=== PATIENT | male | born 1945 | race Caucasian/White ===

== ENCOUNTER 2016-11-11 10:15 | Emergency (ER) | payer OTHER ==
[2016-11-11 10:52] VITALS: BP 137/80; PULSE 62; RESP 16; TEMP 98.2; O2SAT 98
--- NOTE | 2016-11-11 11:40 | UCPHY ---
H & P Patient Type: Established HPI/ROS: This patient presents with a chief complaint of a foreign body in his right 3rd digit tip which occurred while waxing skis 2 weeks ago. There is some tenderness and swelling. Smoking Status: Never smoked Physical Exam: This is a well-developed well-nourished male who is in no acute distress . He is alert and lucid. Examination of the right 3rd digit reveals a pale area with a puncture wound in the extreme distal tip of the digit to the radial side of midline. The area is slightly tender but does not appear to be infected. This is consistent with a foreign body. Constitutional: Initial Vital Signs Temperature (C) 36.8 C 11/11/16 10:48 Heart Rate 62 11/11/16 10:48 Respiratory Rate 16 11/11/16 10:48 Blood Pressure 137/80 H 11/11/16 10:48 O2 Sat (%) 98 11/11/16 10:48 O2 Delivery Mode Room Air Allergies/Adverse Reactions: No Known Allergies Allergy (Unverified 11/11/16 10:52) Home Medications: Medication Instructions Recorded [place]-3 Fatty Acids [Fish Oil 1000 1,000 mg PO DAILY 04/11/14 mg (*)] Atorvastatin Calcium [Lipitor 40 40 mg PO DAILY 05/25/16 mg (*)] Cholecalciferol Vit D3 [Vitamin D3 4,000 units PO DAILY 05/25/16 2000 units tab (OTC)] Herbals/Supplements -Info Only 1 ea PO DAILY 05/25/16 Aspirin EC [Aspirin EC 325 mg (*)] 325 mg PO DAILY #0 tab 05/26/16 Prasugrel HCl [Effient 10mg (*)] 10 mg PO DAILY #0 tab 05/26/16 Medical Decision Making Procedures: A digital block was applied to the radial side of her digit using 0.5% Marcaine without epinephrine. A 0.5 cm incision was made overlying the area in question and a small amount of purulent material was drained. The wound was probed and explored no foreign body could be identified. The patient is aware that the foreign body may remain. Departure - Departure Disposition: Home, Routine, Self-Care Clinical Impression: Foreign body finger Condition: Good Instructions: Soft Tissue Foreign Body (ED) Additional Instructions: If you continue to experience the sensation of a foreign body you should follow- up with a hand surgeon whose name is given to you in these pages. If you develop any suggestion of further infection you should return immediately. Things to look for would be increasing pain, redness or swelling. Soak your finger in warm to hot water several times daily. If you notice spreading redness, swelling, increasing pain and tenderness or kiara pus you should return immediately since these findings frequently indicate infection. It usually takes 3 days from the time of injury for an infection to begin. Adult Pain & Fever Control: We recommend Acetaminophen (Tylenol) and Ibuprofen (Motrin, Advil) for pain and fever control. When fever is high or pain severe, both drugs can be used at the same time, but at different intervals. Please note the time differences. Your dose is: Acetaminophen [650]mg every 4 to 6 hours ibuprofen [600]mg every [6] hours with food OR naproxen Sodium (Aleve) [440]mg every 12 hours. Note: do not take Acetaminophen with Hydrocodone (Vicodin, Lortab) or Oxycodone (Percocet). These medications also contain Acetaminophen. No more than 3000 mg of Acetaminophen should be taken in 24 hours (for an adult) . The maximal dose of ibuprofen that it is safe in a 24-hour period is 2400 mg. You may take 400 mg every 4 hours, 600 mg every 6 hours or 800 mg every 8 hours safely. Referrals: Noé Mcclure DO [Primary Care Provider] - As per Instructions Yady Osman MD [Medical Doctor] - As per Instructions - PQRS PQRS Measurement: Not applicable
== END 2016-11-11 12:30 | disposition home or self-care (01) ==
LOC: CED 10:15
PROC: 0H9FX0Z Drainage of Right Hand Skin with Drainage Device, External Approach (ICD-10-PCS; principal; 2016-11-11)
DX: S60.452A Superficial foreign body of right middle finger, initial encounter (principal); M79.89 Other specified soft tissue disorders
CPT/HCPCS: 10140; G0463; 99213-PO

== ENCOUNTER 2017-04-14 15:57 | Emergency (ER) | payer OTHER ==
--- NOTE | 2017-04-14 17:54 | EDPHY ---
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 He is on Effient because he had recent coronary stenting approximately 1 year ago. Today he was outside playing golf and then got home and his noticed his eye was very red. He felt like he got something in it perhaps and was a little bit irritated but no change in vision and no actual eye pain. REVIEW OF SYSTEMS: No other bruising or bleeding. No decrease in visual acuity. No floaters or flashing lights. No direct eye trauma. PAST MEDICAL HISTORY: Coronary stenting as above. Redness surgery as above. Social history: General Appearance: Alert, no distress. Visual acuity: noted from nursing notes. 20/40 bilaterally without glasses. Lids and Lashes: No edema, no stye, no erythema. Conjunctivae: Not injected, no exudate. Sclera: Subconjunctival hemorrhage medially and laterally on the left. Pupils: Equal and round, normally reactive. Corneas: Left examined with fluoroscein, lateral corneal uptake seen with slitlamp. Negative Jordyn test with fluoroscein. No foreign body on surface of cornea. Anterior chamber: normal, no hyphema or hypopyon. External: No proptosis, no periorbital swelling or redness or tenderness. Emergency Department course/MDM: Patient has a 2 mm left lateral corneal abrasion is subconjunctival hemorrhage but no evidence of corneal ulcer or decreased visual acuity or hyphema. Tobramycin eyedrops, referred back to his blanket weaver for follow-up. Warned that his subconjunctival hemorrhage may take a month or longer to completely resolved. 2202: Discussed with Irma in detail, recommends and is in agreement with planned treatment and followup. Smoking Status: Never smoked Constitutional: Initial Vital Signs Temperature (C) 36.0 C 04/14/17 16:24 Heart Rate 79 04/14/17 16:24 Respiratory Rate 14 04/14/17 16:24 Blood Pressure 114/67 04/14/17 16:24 O2 Sat (%) 94 04/14/17 16:24 O2 Delivery Mode Room Air Allergies/Adverse Reactions: No Known Allergies Allergy (Unverified 11/11/16 10:52) Home Medications: Medication Instructions Recorded [place]-3 Fatty Acids [Fish Oil 1000 1,000 mg PO DAILY 04/11/14 mg (*)] Atorvastatin Calcium [Lipitor 40 40 mg PO DAILY 05/25/16 mg (*)] Cholecalciferol Vit D3 [Vitamin D3 4,000 units PO DAILY 05/25/16 2000 units tab (OTC)] Herbals/Supplements -Info Only 1 ea PO DAILY 05/25/16 Aspirin EC [Aspirin EC 325 mg (*)] 325 mg PO DAILY #0 tab 05/26/16 Prasugrel HCl [Effient 10mg (*)] 10 mg PO DAILY #0 tab 05/26/16 Tobramycin 0.3% [Tobrex 0.3% opht 1 drops .ROUTE Q4 5 Days 04/14/17 drops (*)] MDM/Departure - Depart Disposition: Home, Routine, Self-Care Clinical Impression: Subconjunctival hemorrhage of left eye Corneal abrasion Qualifiers: Encounter type: initial encounter Laterality: left Qualified Code(s): S05.02XA - Injury of conjunctiva and corneal abrasion without foreign body, left eye, initial encounter Condition: Good Instructions: Subconjunctival Hemorrhage (ED), Corneal Abrasion (ED) Prescriptions: Tobramycin 0.3% [Tobrex 0.3% opht drops (*)] 1 drops .ROUTE Q4 5 Days Referrals: Noé Mcclure DO [Primary Care Provider] - As per Instructions Ashley Solis MD [Non Staff Provider ()] - 2-3 days, call for appt.
[2017-04-14 18:11] VITALS: BP 114/85; PULSE 69; RESP 18; TEMP 98.4; O2SAT 98
== END 2017-04-14 18:10 | disposition home or self-care (01) ==
DX: S05.02XA Injury of conjunctiva and corneal abrasion without foreign body, left eye, initial encounter (principal); H11.32 Conjunctival hemorrhage, left eye; Z79.82 Long term (current) use of aspirin; Z95.5 Presence of coronary angioplasty implant and graft; X58.XXXA Exposure to other specified factors, initial encounter; Y99.8 Other external cause status; Y93.53 Activity, golf

== ENCOUNTER 2018-01-30 19:55 | Observation (INO) | payer OTHER ==
--- NOTE | 2018-01-30 19:57 | EDPHY ---
H & P Time Seen by Provider: 01/30/18 19:57 HPI/ROS: HPI CHIEF COMPLAINT: Palpitations, Lightheadedness, strong pulse. HISTORY OF PRESENT ILLNESS: Patient very pleasant 72-year-old male, presents emergency room after states tonight he was sitting on the couch and noticed that his heart pulse was being very strong and felt as if he was skipping a beat. Does report today he felt rather lightheaded this he denies having any chest pressure or chest pain. However patient states today he played 18 holes of golf today he bite to went from the [employer], additionally he mowed the [employer] yard. It Was very hot out today but patient reports that he kept up on his fluids. Approximately an hour ago he was sitting down watching TV on the couch and noticed his pulse being very strongly and a skipped beat. Became concerned about this and decided come the emergency room. Additionally patient reports that he went for a 20 mi bike ride last night between 5:00 p.m. and 8 p.m.. And then he played golf this morning Patient's general doc is Dr. Km Hunter. Past Medical History: Coronary artery disease with 2 stents. Hyperlipidemia Past Surgical History: Coronary artery disease with multiple stents, additionally surgery for a ruptured diaphragm. Social History: Denies daily use of drugs alcohol tobacco. Family History: Noncontributory ROS REVIEW OF SYSTEMS: A comprehensive 10 point review of systems is otherwise negative aside from elements mentioned in the history of present illness. Exam Constitutional appears well nontoxic no acute distress, slightly anxious, triage nursing summary reviewed, vital signs reviewed, awake/alert. Eyes normal conjunctivae and sclera, EOMI, PERRLA. HENT normal inspection, atraumatic, moist mucus membranes, no epistaxis, neck supple/ no meningismus, no raccoon eyes. Respiratory clear to auscultation bilaterally, normal breath sounds, no respiratory distress, no wheezing. Cardiovascular rate normal, regular rhythm, no murmur, no edema, distal pulses normal. Gastrointestinal soft, non-tender, no rebound, no guarding, normal bowel sounds, no distension, no pulsatile mass. Genitourinary no CVA tenderness. Musculoskeletal no midline vertebral tenderness, full range of motion, no calf swelling, no tenderness of extremities, no meningismus, good pulses, neurovascularly intact. Skin pink, warm, & dry, no rash, skin atraumatic. Neurologic awake, alert and oriented x 3, AAOx3, moves all 4 extremities equally, motor intact, sensory intact, CN II-XII intact, normal cerebellar, normal vision, normal speech. Psychiatric normal mood/affect. Heme/Lymph/Immune no lymphadenopathy. 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 Re-evaluation: EKG interpretation by me on record in [employer] system. Impression time of EKG 2001: This is sinus rhythm rate of 83 he has a first-degree AV block with AL interval 256 there is a PVC present. I do not appreciate a significant ST elevation or significant ST depression there is some T-wave abnormalities lead V4 V5 V6. EKG interpretation by me on record in [employer] system. Impression time of EKG 2047, sinus rhythm rate of 72 multiple PVCs present. First-degree AV block 256. Left anterior fascicular block. No ST elevation. T-wave abnormality view. 2109: Spoke with Dr. Alon Flores with Cardiology, reviewed the case with him. He does feel comfortable patient be admitted overnight for serial enzymes and IV hydration. I discussed the results with the patient about his lab work and workup. He is comfortable being admitted overnight for IV hydration serial enzymes. I will speak with the hospitalist service for admission overnight. Observation. 2130: Spoke with the hospitalist service Dr. Kidd. Agrees to admit. Source: Patient, Family - Personal History Tetanus Vaccine Date: < 10 YEARS - Medical/Surgical History Hx Asthma: No Hx Chronic Respiratory Disease: No Hx Diabetes: No Hx Cardiac Disease: Yes Hx Renal Disease: No Hx Cirrhosis: No Hx Alcoholism: No Hx HIV/AIDS: No Hx Splenectomy or Spleen Trauma: No Other PMH: PTX AND MAJOR SURGERY PLAQUE per calcium score. High cholesterol, STENTS X 2 - Social History Smoking Status: Never smoked Constitutional: Initial Vital Signs Temperature (C) 36.8 C 01/30/18 20:40 Heart Rate 82 06/06/18 20:40 Respiratory Rate 20 01/30/18 20:40 Blood Pressure 148/69 H 01/30/18 20:40 O2 Sat (%) 91 L 01/30/18 20:40 O2 Delivery Mode Room Air Allergies/Adverse Reactions: No Known Allergies Allergy (Unverified 01/30/18 20:39) Home Medications: Medication Instructions Recorded [place]-3 Fatty Acids [Fish Oil 1000 1,000 mg PO DAILY 04/11/14 mg (*)] Atorvastatin Calcium [Lipitor 40 40 mg PO DAILY 05/25/16 mg (*)] Cholecalciferol Vit D3 [Vitamin D3 4,000 units PO DAILY 05/25/16 2000 units tab (OTC)] Herbals/Supplements -Info Only 1 ea PO DAILY 05/25/16 Aspirin EC [Aspirin EC 325 mg (*)] 325 mg PO DAILY #0 tab 05/26/16 Prasugrel HCl [Effient 10mg (*)] 10 mg PO DAILY #0 tab 05/26/16 Tobramycin 0.3% [Tobrex 0.3% opht 1 drops .ROUTE Q4 5 Days opht.btl 04/14/17 drops (*)] Medical Decision Making - Diagnostics Imaging Results: Imaging Impressions Chest X-Ray 01/30/18 19:58 Impression: Negative for acute abnormality. - Data Points Laboratory Results: Laboratory Results 01/30/18 20:09 01/30/18 01/30/18 01/30/18 20:32 20:30 20:29 WBC RBC Hgb POC Hgb 14.6 gm/dL gm/dL (13.7-17.5) Hct POC Hct 43 % % (40-51) MCV MCH MCHC RDW Plt Count MPV Neut % (Auto) Lymph % (Auto) [place] % (Auto) Eos % (Auto) Baso % (Auto) Nucleat RBC Rel Count Absolute Neuts (auto) Absolute Lymphs (auto) Absolute Monos (auto) Absolute Eos (auto) Absolute Basos (auto) Absolute Nucleated RBC Immature Gran % Immature Gran # POC Blood Source VENOUS Patient Temperature 36.6 DEGREES DEGREES POC VBG pH 7.49 H (7.31-7.42) POC VBG pCO2 33 mmHg L mmHg (40-44) POC VBG pO2 49 mmHg H mmHg (35-40) POC VBG HCO3 26 mEq/L mEq/L (22-26) POC VBG Total CO2 26 mEq/L mEq/L (21-27) POC VBG Base Excess 2.0 mEq/L mEq/L (-2.5-2.5) POC Mix VBG O2 Sat 88 % H % (65-75) POC Sodium 142 mEq/L mEq/L (135-145) POC Potassium 4.1 mEq/L mEq/L (3.3-5.0) POC Chloride 107 mEq/L mEq/L (97-110) POC BUN 16 mg/dL mg/dL (7-23) POC Creatinine 0.9 mg/dL mg/dL (0.7-1.3) POC Glucose 131 mg/dL H mg/dL (70-100) POC Lactic Acid Zbigniew 1.3 mmol/L mmol/L (0.7-2.1) Magnesium Creatine Kinase CK-MB (CK-2) Fraction POC Troponin I 0.00 ng/mL ng/mL (0.00-0.08) TSH 01/30/18 01/30/18 20:09 20:09 WBC 5.35 10^3/uL 10^3/uL (3.80-9.50) RBC 5.08 10^6/uL 10^6/uL (4.40-6.38) Hgb 15.4 g/dL g/dL (13.7-17.5) POC Hgb Hct 45.3 % % (40.0-51.0) POC Hct MCV 89.2 fL fL (81.5-99.8) MCH 30.3 pg pg (27.9-34.1) MCHC 34.0 g/dL g/dL (32.4-36.7) RDW 13.5 % % (11.5-15.2) Plt Count 166 10^3/uL 10^3/uL (150-400) MPV 9.5 fL fL (8.7-11.7) Neut % (Auto) 59.6 % % (39.3-74.2) Lymph % (Auto) 29.0 % % (15.0-45.0) [place] % (Auto) 8.0 % % (4.5-13.0) Eos % (Auto) 2.4 % % (0.6-7.6) Baso % (Auto) 0.6 % % (0.3-1.7) Nucleat RBC Rel Count 0.0 % % (0.0-0.2) Absolute Neuts (auto) 3.19 10^3/uL 10^3/uL (1.70-6.50) Absolute Lymphs (auto) 1.55 10^3/uL 10^3/uL (1.00-3.00) Absolute Monos (auto) 0.43 10^3/uL 10^3/uL (0.30-0.80) Absolute Eos (auto) 0.13 10^3/uL 10^3/uL (0.03-0.40) Absolute Basos (auto) 0.03 10^3/uL 10^3/uL (0.02-0.10) Absolute Nucleated RBC 0.00 10^3/uL 10^3/uL (0-0.01) Immature Gran % 0.4 % % (0.0-1.1) Immature Gran # 0.02 10^3/uL 10^3/uL (0.00-0.10) POC Blood Source Patient Temperature POC VBG pH POC VBG pCO2 POC VBG pO2 POC VBG HCO3 POC VBG Total CO2 POC VBG Base Excess POC Mix VBG O2 Sat POC Sodium POC Potassium POC Chloride POC BUN POC Creatinine POC Glucose POC Lactic Acid Zbigniew Magnesium 2.0 mg/dL mg/dL (1.6-2.3) Creatine Kinase 130 IU/L IU/L (0-224) CK-MB (CK-2) Fraction 2.62 ng/mL ng/mL (0.00-4.55) POC Troponin I TSH 1.800 uIU/mL uIU/mL (0.465-4.680) Medications Given: Discontinued Medications Sodium Chloride (Ns) 1,000 mls @ 0 mls/hr IV ONCE ONE PRN Reason: Wide Open Stop: 01/30/18 20:07 Last Admin: 01/30/18 20:32 Dose: 1,000 mls Point of Care Test Results: Chemistry 01/30/18 01/30/18 20:32 20:30 POC Sodium 142 mEq/L mEq/L (135-145) POC Potassium 4.1 mEq/L mEq/L (3.3-5.0) POC Chloride 107 mEq/L mEq/L (97-110) POC BUN 16 mg/dL mg/dL (7-23) POC Creatinine 0.9 mg/dL mg/dL (0.7-1.3) POC Glucose 131 mg/dL H mg/dL (70-100) POC Troponin I 0.00 ng/mL ng/mL (0.00-0.08) Blood Gas/Lactic Acid-Arterial 01/30/18 20:29 POC Blood Source VENOUS Blood Gas/Lactic Acid-Venous 01/30/18 20:29 POC VBG pH 7.49 H (7.31-7.42) POC VBG pCO2 33 mmHg L mmHg (40-44) POC VBG pO2 49 mmHg H mmHg (35-40) POC VBG HCO3 26 mEq/L mEq/L (22-26) POC VBG Total CO2 26 mEq/L mEq/L (21-27) POC VBG Base Excess 2.0 mEq/L mEq/L (-2.5-2.5) POC Mix VBG O2 Sat 88 % H % (65-75) POC Lactic Acid Zbigniew 1.3 mmol/L mmol/L (0.7-2.1) ISTAT H&H 01/30/18 20:30 POC Hgb 14.6 gm/dL gm/dL (13.7-17.5) POC Hct 43 % % (40-51) Departure - Departure Disposition: [facility] Inpatient Acute Clinical Impression: Lightheaded, Dehydration, Heart palpitations, PVCs (premature ventricular contractions) Condition: Fair Referrals: Noé Mcclure DO [Primary Care Provider] - As per Instructions
--- NOTE | 2018-01-30 20:04 | CPEKG ---
Heart Rate: 83 RR Interval: 723 P-R Interval: 256 QRSD Interval: 106 QT Interval: 396 QTC Interval: 466 P [place]: 42 QRS [place]: -52 T Wave [place]: 27 EKG Severity - ABNORMAL ECG - EKG Impression: SINUS RHYTHM EKG Impression: VENTRICULAR TRIGEMINY EKG Impression: FIRST DEGREE AV BLOCK EKG Impression: LEFT ANTERIOR FASCICULAR BLOCK EKG Impression: BORDERLINE T WAVE ABNORMALITIES EKG Impression: COMPARED WITH 05/26/2016, VENTRICULAR ECTOPY NOW SEEN Electronically Signed By: Christina Meneses 31-Jan-2018 18:10:43
[2018-01-30] MEDS ORDERED: NS 1,000 ML IV ONE ×2 (20:06→21:27)
[2018-01-30 20:53] LABS: PLATELET COUNT 166 10^3/uL (150-400)
[2018-01-30 20:59] LABS: CREATINE KINASE 130 IU/L (0-224)
[2018-01-30] MEDS ORDERED: ACETAMINOPHEN 325 MG TAB PO PRN (22:14)
[2018-01-30] MEDS ORDERED: ONDANSETRON 4 MG/2 ML VIAL IVP PRN (22:14)
[2018-01-30] MEDS ORDERED: ONDANSETRON DISINTEGRATING 4 MG TAB PO PRN (22:14)
--- NOTE | 2018-01-30 23:42 | PDGENHP ---
History and Physical - Chief Complaint Skipped beats - History of Present Illness 72 yo M w/ hx of CAD s/p NOEMÍ x2 in 2016 presented to ED with complaints of skipped beats when he felt his radial pulse. Patient explains that he has been very active the last few days. He undertook 3 15+ mile bike rides and also mowed the lawn of his [employer]into. He felt a little lightheaded this morning but felt well the rest of the day. Then, this evening, he checked in radial pulse and thought that there were occasional skipped beats. He was asymptomatic through this and denies chest pain. [place] [facility] [place] were noted on monitor and ECG. Dr. Berman spoke with Dr. Flores who recommended observation on telemetry overnight and monitoring of cardiac enzymes. At the time of my evaluation patient is asymptomatic. History Information - Allergies/Home Medication List Allergies/Adverse Reactions: No Known Allergies Allergy (Unverified 01/30/18 20:39) Home Medications: [place]-3 Fatty Acids [Fish Oil 1000 mg (*)] 1,000 mg PO DAILY 04/11/14 [Last Taken 05/24/16 06:00] Atorvastatin Calcium [Lipitor 40 mg (*)] 40 mg PO DAILY 05/25/16 [Last Taken 06:00] Cholecalciferol Vit D3 [Vitamin D3 2000 units tab (OTC)] 4,000 units PO DAILY [Last Taken 05/24/16 06:00] Herbals/Supplements -Info Only 1 ea PO DAILY 05/25/16 [Last Taken 05/24/16 06:00 ] I have personally reviewed and updated: family history, medical history - Past Medical History coronary artery disease - Surgical History Reports: hernia repair, coronary stent - Family History Positive for: cancer - Social History Smoking Status: Never smoked Review of Systems Review of Systems: ROS: 10pt was reviewed & negative except for what was stated in HPI & below Physical Exam Physical Exam: Temp Pulse Resp BP Pulse Ox 36.6 C 64 18 121/73 H 92 01/30/18 23:00 01/30/18 23:00 01/30/18 23:00 01/30/18 23:00 01/30/18 23:00 Constitutional: no apparent distress, not in pain Eyes: PERRL, EOMI Ears, Nose, Mouth, Throat: moist mucous membranes, no oral mucosal ulcers Cardiovascular: regular rate and rhythym, no murmur, rub, or gallop Respiratory: no respiratory distress, clear to auscultation Gastrointestinal: normoactive bowel sounds, soft, non-tender abdomen Skin: warm, normal color Musculoskeletal: full muscle strength, no muscle tenderness Neurologic: AAOx3, CN II-XII Intact Psychiatric: interacting appropriately, not anxious Lab Data & Imaging Review 01/30/18 20:09 WBC 5.35 10^3/uL (3.80-9.50) 01/30/18 20:09 RBC 5.08 10^6/uL (4.40-6.38) 01/30/18 20:09 Hgb 15.4 g/dL (13.7-17.5) 01/30/18 20: POC Hgb 14.6 gm/dL (13.7-17.5) 01/30/18 20:30 Hct 45.3 % (40.0-51.0) 01/30/18 20: POC Hct 43 % (40-51) 01/30/18 20:30 MCV 89.2 fL (81.5-99.8) 01/30/18 20: MCH 30.3 pg (27.9-34.1) 01/30/18 20: MCHC 34.0 g/dL (32.4-36.7) 01/30/18 20:09 RDW 13.5 % (11.5-15.2) 01/30/18 20:09 Plt Count 166 10^3/uL (150-400) 01/30/18 20:09 MPV 9.5 fL (8.7-11.7) 01/30/18 20:09 Neut % (Auto) 59.6 % (39.3-74.2) 01/30/18 20:09 Lymph % (Auto) 29.0 % (15.0-45.0) 01/30/18 20:09 [place] % (Auto) 8.0 % (4.5-13.0) 01/30/18 20:09 Eos % (Auto) 2.4 % (0.6-7.6) 01/30/18 20:09 Baso % (Auto) 0.6 % (0.3-1.7) 01/30/18 20:09 Nucleat RBC Rel Count 0.0 % (0.0-0.2) 01/30/18 20:09 Absolute Neuts (auto) 3.19 10^3/uL (1.70-6.50) 01/30/18 20:09 Absolute Lymphs (auto) 1.55 10^3/uL (1.00-3.00) 01/30/18 20:09 Absolute Monos (auto) 0.43 10^3/uL (0.30-0.80) 01/30/18 20:09 Absolute Eos (auto) 0.13 10^3/uL (0.03-0.40) 01/30/18 20:09 Absolute Basos (auto) 0.03 10^3/uL (0.02-0.10) 01/30/18 20:09 Absolute Nucleated RBC 0.00 10^3/uL (0-0.01) 01/30/18 20:09 Immature Gran % 0.4 % (0.0-1.1) 01/30/18 20:09 Immature Gran # 0.02 10^3/uL (0.00-0.10) 01/30/18 20:09 POC Blood Source VENOUS 01/30/18 20:29 Patient Temperature 36.6 DEGREES 01/30/18 20:29 POC VBG pH 7.49 (7.31-7.42) H 01/30/18 20:29 POC VBG pCO2 33 mmHg (40-44) L 01/30/18 20:29 POC VBG pO2 49 mmHg (35-40) H 01/30/18 20:29 POC VBG HCO3 26 mEq/L (22-26) 01/30/18 20:29 POC VBG Total CO2 26 mEq/L (21-27) 01/30/18 20:29 POC VBG Base Excess 2.0 mEq/L (-2.5-2.5) 01/30/18 20: POC Mix VBG O2 Sat 88 % (65-75) H 01/30/18 20:29 POC Sodium 142 mEq/L (135-145) 01/30/18 20:30 POC Potassium 4.1 mEq/L (3.3-5.0) 01/30/18 20:30 POC Chloride 107 mEq/L (97-110) 01/30/18 20:30 POC BUN 16 mg/dL (7-23) 01/30/18 20:30 POC Creatinine 0.9 mg/dL (0.7-1.3) 01/30/18 20:30 POC Glucose 131 mg/dL (70-100) H 01/30/18 20:30 POC Lactic Acid Zbigniew 1.3 mmol/L (0.7-2.1) 01/30/18 20:29 Magnesium 2.0 mg/dL (1.6-2.3) 01/30/18 20:09 Creatine Kinase 130 IU/L (0-224) 01/30/18 20:09 CK-MB (CK-2) Fraction 2.62 ng/mL (0.00-4.55) 01/30/18 20:09 POC Troponin I 0.00 ng/mL (0.00-0.08) 01/30/18 20:32 TSH 1.800 uIU/mL (0.465-4.680) 01/30/18 20:09 Imaging Review: Imaging Impressions Chest X-Ray 01/30/18 19:58 Impression: Negative for acute abnormality. Visualized and Interpreted Chest x-ray results: Yes Chest X-Ray results: no infiltrate Visualized and Interpreted EKG results: Yes EKG Interpretation: Positive for: normal sinsus rhythm, other (PVCs) Assessment & Plan Assessment: 72 yo M w hx CAD p/w PVCs. Plan: 1. PVCs - Noted on monitor and ECG on admission(personally interpreted). These are likely responsible for the "skipped beats" that patient noted while checking his pulse. He denies chest pain or symptoms at this time, although he did feel a bit lightheaded this morning. Of note, he has exerted himself quite a lot over the pat few days, which may be contributing. - Admit to PCU for observation - S/p 2L IVF - Monitor on telemetry - Trend cardiac enzymes 2. CAD - S/p NOEMÍ to LAD and ostial diagonal in 2015. He is compliant with his home medications. - Continue home meds Diet - Regular Code - Full Ppx - LMWH Dispo - Admit under observation status, discussed case with Dr. Kidd
[2018-01-31 04:33] LABS: PLATELET COUNT 129 10^3/uL (150-400)
--- NOTE | 2018-01-31 04:46 | CPEKG ---
Heart Rate: 59 RR Interval: 1017 P-R Interval: 288 QRSD Interval: 102 QT Interval: 448 QTC Interval: 444 P [place]: 65 QRS [place]: -49 T Wave [place]: -34 EKG Severity - ABNORMAL ECG - EKG Impression: SINUS RHYTHM EKG Impression: FIRST DEGREE AV BLOCK EKG Impression: LEFT ANTERIOR FASCICULAR BLOCK Electronically Signed By: oSo Sebastian 31-Jan-2018 06:15:32
[2018-01-31 08:54] VITALS: BP 103/58
[2018-01-31] MEDS ORDERED: ENOXAPARIN 40 MG/0.4 ML SYR SC SCH (09:00)
[2018-01-31] MEDS ORDERED: ASPIRIN 81 MG CHEWABLE TAB PO SCH (09:45)
--- NOTE | 2018-01-31 10:25 | HOSPPROG ---
Hospitalist Progress Note Assessment/Plan: 72 yo M w cad here w 2nd degree AV block second degree AV block: no syncope likely mobitz 1 cardiology to see not on any abhilash agents cad: stable on asa stain dispo :pending cardiology eval Subjective: tele: second degree AV block (intero by me). case d/w dr garcia Objective: Vital Signs Temp Pulse Resp BP Pulse Ox 36.5 C 52 L 16 103/58 L 91 L 01/31/18 08:49 01/31/18 08:49 01/31/18 08:49 01/31/18 08:49 01/31/18 08:49 Laboratory Results 01/31/18 03:40 01/31/18 03:40 01/30/18 01/31/18 02/01/18 05:59 05:59 05:59 Intake Total 2250 Output Total 500 Balance 1750 - Physical Exam Constitutional: no apparent distress, appears nourished Eyes: PERRL, anicteric sclera Ears, Nose, Mouth, Throat: moist mucous membranes, hearing normal Cardiovascular: regular rate and rhythym, no murmur, rub, or gallop, No systolic murmur Respiratory: no respiratory distress, no rales or rhonchi Gastrointestinal: normoactive bowel sounds, soft, non-tender abdomen Genitourinary: no bladder fullness, No farah in urethra Skin: warm, normal color Musculoskeletal: full muscle strength, no muscle tenderness Neurologic: AAOx3 Psychiatric: interacting appropriately Lymph, Heme, Immunologic: no cervical LAD ICD10 Worksheet Patient Problems: Problems Problem Status Onset Dehydration Acute Heart palpitations Acute Lightheaded Acute PVCs (premature ventricular contractions) Acute Bradycardia Acute
--- NOTE | 2018-01-31 10:32 | CPEKG ---
Heart Rate: 72 RR Interval: 833 P-R Interval: 256 QRSD Interval: 106 QT Interval: 388 QTC Interval: 425 P [place]: 47 QRS [place]: -48 T Wave [place]: -10 EKG Severity - ABNORMAL ECG - EKG Impression: SINUS RHYTHM EKG Impression: MULTIPLE VENTRICULAR PREMATURE COMPLEXES EKG Impression: FIRST DEGREE AV BLOCK EKG Impression: LEFT ANTERIOR FASCICULAR BLOCK EKG Impression: BORDERLINE T ABNORMALITIES, INFERIOR LEADS Preliminary Awaiting MD Review
--- NOTE | 2018-01-31 10:41 | PDCARCONS ---
Cardiology Consult Reason for Consult: Palpitations, skipped heartbeats, known coronary artery disease. Chief Complaint: Palpitations. Requesting Physician: Dr. Jer Meza. History of Present Illness: 72-year-old male typically followed as an outpatient by Dr. Km Hunter. He has known CAD with previous PCI/stenting of the mid LAD diagonal vessel back in September of 2015. At that time he presented with typical exertional chest discomfort. He has a history of hyperlipidemia. Additionally has known conduction system disease. His ECGs over the years have demonstrated a first- degree AV block with a left anterior fascicular block. At his baseline he is very active. He likes to ride his bicycle and will usually ski 50 days a year. With the coming of summer he has been cycling very vigorously. He went on several 20-25 mi bicycle rides this week without any symptoms. Yesterday, the day of admission, he rode his bicycle to the [place], golfed 18 holes and rode home. He was sitting on the couch with his watching TV when he noticed that his heart was beating irregularly. He describes a sensation where his heart would "miss" a heartbeat. This was followed by a very forceful cardiac contraction. He otherwise felt well. He states that if he was not palpating his cardiac apex he would not have known that his heart was irregular. As a result he was brought to the emergency department. His initial electrocardiogram demonstrated PVCs. Subsequently was admitted overnight. He has been in sinus rhythm on telemetry. He did have episodes of Mobitz type 1 second-degree AV block. These were noted to be asymptomatic. In talking to him he typically does not typically experience dizzy spells or lightheaded episodes. He has never had an episode where he has lost consciousness. Yesterday morning, when he began [employer], he did have a transient episode of dizziness that passed very quickly. He has not had any chest pain. He denies orthopnea, PND and edema. History Information - Allergies/Home Medication List Allergies/Adverse Reactions: No Known Allergies Allergy (Unverified 01/30/18 20:39) Home Medications: Irving-3 Fatty Acids [Fish Oil 1000 mg (*)] 1,000 mg PO DAILY 04/11/14 [Last Taken 01/30/18] Atorvastatin Calcium [Lipitor 40 mg (*)] 40 mg PO HS 05/25/16 [Last Taken ] Cholecalciferol Vit D3 [Vitamin D3 2000 units tab (OTC)] 4,000 units PO DAILY [Last Taken 01/30/18] Aspirin [Aspirin 81mg (*)] 162 mg PO DAILY 01/31/18 [Last Taken 01/30/18] I have personally reviewed and updated: family history, medical history, social history, surgical history Past Medical History: CAD, hyperlipidemia. - Surgical History Additional surgical history: Cataract surgery, retinal peel, bunion repair, foot neuroma, herniated diaphragm. - Family History Additional family history: Hyperlipidemia, PVD. - Social History Smoking Status: Never smoked Alcohol Use: Other (Daily light alcohol use) Drug Use: None Physical Exam Physical Exam: Temp Pulse Resp BP Pulse Ox 36.5 C 52 L 16 103/58 L 91 L 01/31/18 08:49 01/31/18 08:49 01/31/18 08:49 01/31/18 08:49 01/31/18 08:49 Constitutional: no apparent distress, appears nourished, not in pain Eyes: PERRL, anicteric sclera, EOMI Ears, Nose, Mouth, Throat: moist mucous membranes, hearing normal, ears appear normal, no oral mucosal ulcers Cardiovascular: regular rate and rhythym, no murmur, rub, or gallop, No edema Peripheral Pulses: 2+: carotid (R), carotid (L) Respiratory: no respiratory distress, no rales or rhonchi, clear to auscultation Gastrointestinal: normoactive bowel sounds, soft, non-tender abdomen, no palpable masses Genitourinary: no bladder fullness, no bladder tenderness Skin: warm, normal color, no rashes or abrasions, no fluctuance, no induration, No mottled Musculoskeletal: full muscle strength, no muscle tenderness, normal joint ROM, no joint effusions Neurologic: AAOx3 Psychiatric: interacting appropriately, not anxious, not encephalopathic, thought process linear Lab and Imaging 01/31/18 03:40 01/31/18 03:40 WBC 4.34 10^3/uL (3.80-9.50) 01/31/18 03:40 RBC 4.49 10^6/uL (4.40-6.38) 01/31/18 03:40 Hgb 13.6 g/dL (13.7-17.5) L 01/31/18 03:40 POC Hgb 14.6 gm/dL (13.7-17.5) 01/30/18 20:30 Hct 40.9 % (40.0-51.0) 01/31/18 03:40 POC Hct 43 % (40-51) 01/30/18 20:30 MCV 91.1 fL (81.5-99.8) 01/31/18 03:40 MCH 30.3 pg (27.9-34.1) 01/31/18 03:40 MCHC 33.3 g/dL (32.4-36.7) 01/31/18 03:40 RDW 13.6 % (11.5-15.2) 01/31/18 03:40 Plt Count 129 10^3/uL (150-400) L 01/31/18 03:40 MPV 9.7 fL (8.7-11.7) 01/31/18 03:40 Neut % (Auto) 58.0 % (39.3-74.2) 01/31/18 03:40 Lymph % (Auto) 29.3 % (15.0-45.0) 01/31/18 03:40 Woods % (Auto) 8.5 % (4.5-13.0) 01/31/18 03:40 Eos % (Auto) 3.0 % (0.6-7.6) 01/31/18 03:40 Baso % (Auto) 0.7 % (0.3-1.7) 01/31/18 03:40 Nucleat RBC Rel Count 0.0 % (0.0-0.2) 01/31/18 03:40 Absolute Neuts (auto) 2.52 10^3/uL (1.70-6.50) 01/31/18 03:40 Absolute Lymphs (auto) 1.27 10^3/uL (1.00-3.00) 01/31/18 03:40 Absolute Monos (auto) 0.37 10^3/uL (0.30-0.80) 01/31/18 03:40 Absolute Eos (auto) 0.13 10^3/uL (0.03-0.40) 01/31/18 03:40 Absolute Basos (auto) 0.03 10^3/uL (0.02-0.10) 01/31/18 03:40 Absolute Nucleated RBC 0.00 10^3/uL (0-0.01) 01/31/18 03:40 Immature Gran % 0.5 % (0.0-1.1) 01/31/18 03:40 Immature Gran # 0.02 10^3/uL (0.00-0.10) 01/31/18 03:40 POC Blood Source VENOUS 01/30/18 20:29 Patient Temperature 36.6 DEGREES 01/30/18 20:29 POC VBG pH 7.49 (7.31-7.42) H 01/30/18 20:29 POC VBG pCO2 33 mmHg (40-44) L 01/30/18 20:29 POC VBG pO2 49 mmHg (35-40) H 01/30/18 20:29 POC VBG HCO3 26 mEq/L (22-26) 01/30/18 20:29 POC VBG Total CO2 26 mEq/L (21-27) 01/30/18 20:29 POC VBG Base Excess 2.0 mEq/L (-2.5-2.5) 01/30/18 20:29 POC Mix VBG O2 Sat 88 % (65-75) H 01/30/18 20:29 POC Sodium 142 mEq/L (135-145) 01/30/18 20:30 Sodium 144 mEq/L (135-145) 01/31/18 03:40 POC Potassium 4.1 mEq/L (3.3-5.0) 01/30/18 20:30 Potassium 4.1 mEq/L (3.3-5.0) 01/31/18 03:40 POC Chloride 107 mEq/L (97-110) 01/30/18 20:30 Chloride 111 mEq/L (97-110) H 01/31/18 03:40 Carbon Dioxide 24 mEq/l (22-31) 01/31/18 03:40 Anion Gap 9 mEq/L (8-16) 01/31/18 03:40 POC BUN 16 mg/dL (7-23) 01/30/18 20:30 BUN 14 mg/dL (7-23) 01/31/18 03:40 Creatinine 0.8 mg/dL (0.7-1.3) 01/31/18 03:40 POC Creatinine 0.9 mg/dL (0.7-1.3) 01/30/18 20:30 Estimated GFR > 60 01/31/18 03:40 Glucose 81 mg/dL (70-100) 01/31/18 03:40 POC Glucose 131 mg/dL (70-100) H 01/30/18 20:30 POC Lactic Acid Zbigniew 1.3 mmol/L (0.7-2.1) 01/30/18 20:29 Calcium 8.2 mg/dL (8.5-10.4) L 01/31/18 03:40 Phosphorus 3.9 mg/dL (2.5-4.5) 01/31/18 03:40 Magnesium 2.0 mg/dL (1.6-2.3) 01/31/18 03:40 Creatine Kinase 130 IU/L (0-224) 01/30/18 20:09 CK-MB (CK-2) Fraction 2.62 ng/mL (0.00-4.55) 01/30/18 20:09 POC Troponin I 0.00 ng/mL (0.00-0.08) 01/30/18 20:32 Troponin I < 0.012 ng/mL (0.000-0.034) 01/31/18 03:40 TSH 1.800 uIU/mL (0.465-4.680) 01/30/18 20:09 Visualized and Interpreted Chest x-ray results: No Visualized and Interpreted EKG results: Yes EKG additional interpertation: Normal sinus rhythm, first-degree AV block, left anterior fascicular block. Telemetry: Normal sinus rhythm. Periods of Mobitz type 1 second-degree AV block. A/P Assessment: 72-year-old male with a history of CAD and previous LAD/diagonal stenting in September of 2015, hyperlipidemia and a baseline abnormal ECG indicating a bifascicular block. He is admitted with symptoms of palpitations described as periods of time where his heart will skip beats. On arrival he had demonstrable PVCs. Overnight he has had episodes of asymptomatic Mobitz type 1 second-degree AV block. His workup here has been unremarkable. He does not express any concerning symptoms. Plan: At the present time I think he can be discharged from the hospital. I would like him to have an outpatient [employer] monitor for a period of a month. I would also like him to have a stress MPI. He will follow-up with Dr. Km Hunter post testing. I specifically asked them to return to the emergency department should he developed symptoms of dizziness, lightheadedness or chest discomfort. The patient is in agreement with this plan.
--- NOTE | 2018-01-31 11:31 | GDS ---
[f rep st] DISCHARGE SUMMARY DISCHARGE DIAGNOSES: 1. History of coronary disease with stents. 2. Second-degree heart block, type 1. This is Wenckebach. 3. Presyncope. Please see admission history and physical by Dr. Petey Chatman. The patient presented with li ghtheadedness. He had some PVCs on the monitor. He had negative troponins. He had evidence of seco nd-degree heart block with prolonging NM interval. He has had no syncope. He was seen by Cardiology , who proposed outpatient monitoring and a stress test to be performed as an outpatient. He was disc harged home. Notably, he is not on any abhilash agents so there is nothing to stop for this heart block . /[id number]/MODL
[2018-01-31] MEDS ORDERED: ATORVASTATIN CALCIUM 40 MG TAB PO SCH (21:00)
[2018-02-01] MEDS ORDERED: OMEGA-3 FATTY ACIDS 1,000 MG CAP PO SCH (09:00)
[2018-02-01] MEDS ORDERED: CHOLECALCIFEROL VIT D3 2,000 UNITS TAB/CAP PO SCH (09:00)
== END 2018-01-31 12:20 | disposition home or self-care (01) ==
LOC: CED 19:55 → CEDHOLD 21:30 → F2W 22:55
PROVIDERS: ADMIT Internal Medicine; ATTEND Internal Medicine
DX: R42 Dizziness and giddiness (principal); R00.2 Palpitations; E86.0 Dehydration; I49.3 Ventricular premature depolarization; I44.1 Atrioventricular block, second degree; I25.10 Atherosclerotic heart disease of native coronary artery without angina pectoris; E78.5 Hyperlipidemia, unspecified; Z95.5 Presence of coronary angioplasty implant and graft
CPT/HCPCS: 71045; 93005; 96360; 99285; G0378; J1650; 80053-PO; 82435-PO; 82565-PO; 82947-PO; 83605-PO; 84132-PO; 84295-PO; 84484-PO; 84520-PO; 85014-PO